=== PATIENT | male | born 1985 | race African-American/Black ===

== ENCOUNTER 2019-02-11 09:27 | Day surgery (SDC) | payer OTHER ==
[~2019-02-11] VITALS: Ht 218.8 cm; Wt 126.5 kg
[2019-02-11 09:53] VITALS: BP 137/96; PULSE 80; TEMP 98.2
[2019-02-11] MEDS ORDERED: MIRALAX119G PO (10:15)
[2019-02-11] MEDS ORDERED: FLEXERIL 1010 MG/TAB PO (10:16)
[2019-02-11] MEDS ORDERED: ADVIL200 MG PO (10:17)
[2019-02-11] MEDS ORDERED: MOTRIN 200200 MG/TAB PO (10:18)
[2019-02-11 11:35] VITALS: BP 128/81; PULSE 82; TEMP 98.1
--- NOTE | 2019-02-11 11:35 | NUR ---
Pt to [facility] via cart from [facility]. Pt drowsy, but awake. Ambulates to recliner with stand by assitance. Warm blanket provided. muffin and juice provided. Girlfriend in room. Pt denies pain or nausea. Will continue to monitor. Call light within reach.
[2019-02-11 11:50] VITALS: BP 132/94; PULSE 92
--- NOTE | 2019-02-11 11:50 | NUR ---
Pt tolerating food and fluids without difficulties. Will continue to monitor.
[2019-02-11 12:05] VITALS: BP 141/98; PULSE 108
--- NOTE | 2019-02-11 12:05 | NUR ---
Discharge instructions reviewed. Pt voices understanding.IV site discontinued with all parts intact. Pt up to dress. Call light within reach.
--- NOTE | 2019-02-11 12:15 | NUR ---
Pt escorted to private car via ambulation per his request. Pt accompanied home by his girlfriend.
== END 2019-02-11 12:15 | disposition home or self-care (01) ==
LOC: SDCO 09:27
DX: K63.5 Polyp of colon (principal); K64.1 Second degree hemorrhoids; K92.1 Melena; K59.00 Constipation, unspecified; Z79.82 Long term (current) use of aspirin; F32.9 Major depressive disorder, single episode, unspecified; F41.9 Anxiety disorder, unspecified; Z87.891 Personal history of nicotine dependence
CPT/HCPCS: J2250; J3010; J7030